=== PATIENT | female | born 1960 | race Caucasian/White ===

== ENCOUNTER → 2018-09-20 | Outpatient (CLI) | payer MEDICAID ==
[2018-09-20 16:24] LABS: T4, Free (Free Thyroxine) 1.8 ng/dL (0.80-1.80)
== END | disposition home or self-care (01) ==
LOC: LABWHC1 09:46
PROVIDERS: ATTEND Internal Medicine Endocrinology, Diabetes & Metabolism
DX: E03.9 Hypothyroidism, unspecified (principal); K76.89 Other specified diseases of liver
CPT/HCPCS: 36415; 84075; 84432; 84439; 84443

== ENCOUNTER → 2018-12-13 | Outpatient (CLI) | payer MEDICAID ==
--- NOTE | 2018-12-13 15:12 | MR ---
EXAMINATION TYPE: MR brain wo con DATE OF EXAM: 12/13/2018 COMPARISON: NONE HISTORY: Cervico-occipital neuralgia per order. Headache and jaw pain per patient with history of thy roid cancer 2009 TECHNIQUE: Multiplanar, multisequence imaging of the brain and brainstem is performed without IV cont rast. FINDINGS: Diffusion weighted images demonstrate no evidence of a recent infarct or other diffusion abnormality. There is no worrisome extra-axial fluid collection. The ventricular system and cisternal spaces are normal in size and appearance. The brain volume is age appropriate. There are few scattered small fo ci T2 hyperintensity seen throughout the white matter bilaterally. Approximately 10-20 small scattere d lesions are seen. Lesions are nonspecific in appearance and distribution are presumed on basis of p roduct of chronic small vessel ischemic change in patient of this age. Midline structures demonstrate normal morphology. The craniocervical junction appears within normal limits. Normal vascular flow voids are present. The visualized sinuses are clear and the globes are i ntact. IMPRESSION: Mild to borderline moderate nonspecific white matter changes may be on basis of product o f chronic small vessel ischemic change and/or altered vascular mechanics related to product of migrai ne headaches among the possible etiologies.
== END ==
LOC: RADMRIMAIN 06:27
PROVIDERS: ATTEND Family Medicine
DX: R90.89 Other abnormal findings on diagnostic imaging of central nervous system (principal)
CPT/HCPCS: 70551

== ENCOUNTER → 2019-03-26 | Outpatient (CLI) | payer MEDICAID ==
[2019-03-26 14:41] LABS: Basophils # (A) 0.1 k/uL (0-0.2); Basophils % (A) 1 %; Eosinophils # (A) 0.4 k/uL (0-0.7); Eosinophils % (A) 5 %; HCT 40.5 % (34.0-46.0); HGB 13.4 gm/dL (11.4-16.0); Lymphocytes # (A) 2.6 k/uL (1.0-4.8); Lymphocytes % (A) 33 %; MCH 27.8 pg (25.0-35.0); MCHC 33.2 g/dL (31.0-37.0); MCV 83.9 fL (80.0-100.0); Mean Platelet Volume 8.7; Monocytes # (A) 0.4 k/uL (0-1.0); Monocytes % (A) 6 %; Neutrophils # (A) 4.3 k/uL (1.3-7.7); Neutrophils % (A) 54 %; Platelet Count 254 k/uL (150-450); RBC 4.83 m/uL (3.80-5.40); RDW 12.8 % (11.5-15.5); WBC 7.9 k/uL (3.8-10.6)
[2019-03-26 14:42] LABS: Appearance,Urine Clear (Clear); Bilirubin,Urine Negative (Negative); Blood,Urine Negative (Negative); Color,Urine Light Yellow; Glucose,Urine (UA) Negative (Negative); Ketones,Urine Negative (Negative); Leukocyte Esterase,Urine Negative (Negative); Nitrite,Urine Negative (Negative); Protein,Urine Negative (Negative); Specific Gravity,Urine 1.007 (1.001-1.035); Urobilinogen,Urine <2.0 mg/dL (<2.0)
[2019-03-26 15:58] LABS: Erythrocyte Sedimentation Rate 13 mm/hr (0-20)
[2019-03-26 19:59] LABS: Vitamin D 25 Hydroxy 38.3 ng/mL (30.0-100.0)
[2019-03-26 20:17] LABS: African American GFR (CKD) 72.9 (60.0-200.0); Albumin 4.5 g/dL (3.80-4.90); Albumin/Globulin Ratio 2.65 (1.60-3.17); Anion Gap 9.4 mmol/L (4.00-12.00); Calcium 9.7 mg/dL (8.7-10.3); Carbon Dioxide 28.6 mmol/L (21.6-31.8); Globulin 1.7 g/dL (1.6-3.3); Potassium 4.2 mmol/L (3.5-5.5); Total Bilirubin 0.7 mg/dL (0.3-1.2); Total Protein 6.2 g/dL (6.2-8.2)
[2019-03-26 20:54] LABS: Hepatitis A Antibody IgM Non-Reactive (Non-Reactive); Hepatitis B Core IgM Non-Reactive (Non-Reactive); Hepatitis B Surface Antigen Non-Reactive (Non-Reactive); Hepatitis C IgG Antibody Non-Reactive (Non-Reactive)
== END | disposition home or self-care (01) ==
LOC: LABWHC1 14:05
PROVIDERS: ATTEND Family Medicine
DX: Z00.00 Encounter for general adult medical examination without abnormal findings (principal); Z11.59 Encounter for screening for other viral diseases
CPT/HCPCS: 36415; 80053; 80074; 81003; 82306; 82607; 84443; 85025; 85652

== ENCOUNTER → 2019-04-02 | Outpatient (CLI) | payer MEDICAID ==
--- NOTE | 2019-04-02 09:35 | CT ---
EXAMINATION TYPE: CT sinus wo con DATE OF EXAM: 04/02/2019 COMPARISON: None HISTORY: sinusitis CT DLP: 567 mGycm. Automated Exposure Control for Dose Reduction was Utilized. TECHNIQUE: CT scan of the sinuses is performed without contrast, axial images are obtained, coronal r eformatted images are also reviewed. FINDINGS: There is mild mucosal thickening fluid levels seen in the exterior margin the maxillary sin uses bilaterally greater on the right remaining paranasal sinuses development. Normal development and aeration. Mastoid air cells. The ostiomeatal complex is patent bilaterally on the coronal images. Visualized portion of mastoid air cells show no abnormal opacification. The globes are intact bilate rally. There is a Herminio cell on the right. Nasal septal deviation noted IMPRESSION: 1. Mild bilateral maxillary sinusitis. Fluid levels suggest possible acute component, correlate clini karla.
== END | disposition home or self-care (01) ==
LOC: RADCTMAIN 08:35
PROVIDERS: ATTEND Family Medicine
DX: J32.0 Chronic maxillary sinusitis (principal)
CPT/HCPCS: 70486

== ENCOUNTER → 2019-06-01 | Outpatient (CLI) | payer MEDICAID ==
--- NOTE | 2019-06-07 11:35 | MM ---
Reason for exam: screening (asymptomatic). Last mammogram was performed 2 years and 8 months ago. History: Patient is postmenopausal and has history of other cancer at age 54. Physical Findings: A clinical breast exam by your physician is recommended on an annual basis and results should be correlated with mammographic findings. MG 3D Screening Mammo W/Cad Bilateral CC and MLO view(s) were taken. Prior study comparison: October 12, 2016, mammogram, performed at [facility]. June 12, 2014, mammogram, performed at [facility]. There are scattered fibroglandular densities. There is a 6 x 3mm mass in the upper central slightly inner left breast at middle depth 5cm from nipple on 3D MLO 43/87 and CC 27/82. No suspicious abnormality on the right breast. ASSESSMENT: Incomplete: need additional imaging evaluation, BI-RAD 0 RECOMMENDATION: Special view mammogram of the left breast. If lesion persists on supplemental views, image directed ultrasound is recommended. [facility] will attempt to contact patient to return for supplemental views and ultrasound if indicated.
== END | disposition home or self-care (01) ==
LOC: RADMAMWWP 15:33
PROVIDERS: ATTEND Family Medicine
DX: Z12.31 Encounter for screening mammogram for malignant neoplasm of breast (principal)
CPT/HCPCS: 77063; 77067

== ENCOUNTER → 2019-06-18 | Outpatient (CLI) | payer MEDICAID ==
[2019-06-18 17:25] LABS: Chol/HDL Ratio 4.02; LDL Cholesterol,Calculated 116.8 mg/dL (0.0-131.0); VLDL Calculation 25.2 mg/dL (5.00-40.00)
== END | disposition home or self-care (01) ==
LOC: LABWHC1 10:46
PROVIDERS: ATTEND Family Medicine
DX: Z00.00 Encounter for general adult medical examination without abnormal findings (principal); Z11.59 Encounter for screening for other viral diseases
CPT/HCPCS: 36415; 80061

== ENCOUNTER → 2019-06-18 | Outpatient (CLI) | payer MEDICAID ==
--- NOTE | 2019-06-18 11:00 | MM ---
Reason for exam: additional evaluation requested from abnormal screening. Last mammogram was performed 1 month ago. History: Patient is postmenopausal and has history of other cancer at age 54. Took hormonal contraceptives beginning at age 23. Physical Findings: Nurse did not find any significant physical abnormalities on exam. MG 3D Work Up W/Cad LT Spot compression CC, spot compression MLO, and ML view(s) were taken of the left breast. Prior study comparison: June 01, 2019, bilateral MG 3d screening mammo w/cad. October 12, 2016, mammogram, performed at [facility]. The breast tissue is heterogeneously dense. This may lower the sensitivity of mammography. The previously seen abnormality resolves on additional views and appears as fibroglandular tissue compatible with summation. These results were verbally communicated with the patient and result sheet given to the patient on 06/18/19. ASSESSMENT: Negative, BI-RAD 1 RECOMMENDATION: Return to routine screening mammogram schedule for both breasts.
== END | disposition home or self-care (01) ==
LOC: RADMAMWWP 10:01
PROVIDERS: ATTEND Family Medicine
DX: R92.8 Other abnormal and inconclusive findings on diagnostic imaging of breast (principal)
CPT/HCPCS: 77061; 77065

== ENCOUNTER 2019-07-23 11:35 | Day surgery (SDC) | payer MEDICAID ==
[2019-07-19 12:12] VITALS: BMI 34.3
[~2019-07-23 11:35] MED LIST: LACTATED RINGERS 1,000 ML IV SCH; LIDOCAINE 1% 20 ML VIAL (10MG/ML) FOR IV START INTRADERMA PRN
[2019-07-23 11:58] VITALS: RESP 16; TEMP 97.5
[2019-07-23] MEDS ORDERED: PROPOFOL 10 MG/ML 20 ML VIAL IV ONE (13:47)
[2019-07-23] MEDS ORDERED: LIDOCAINE 1% INJ 10MG/ML (20 ML MDV) ONE (13:47)
--- NOTE | 2019-07-23 13:57 | P.GSHP ---
History of Present Illness H&P Date: 07/23/19 Chief Complaint: GERD 59-year-old female with history of reflux. Last endoscopy a little over one year ago. Patient was found to have a Schatzki's ring at that time. Lately has had some increased reflux. Remains on antiacids. Past Medical History Past Medical History: Cancer, GERD/Reflux, Thyroid Disorder Additional Past Medical History / Comment(s): hx of thyroid ca, radiation 2010 History of Any Multi-Drug Resistant Organisms: None Reported Past Surgical History: Joint Replacement Additional Past Surgical History / Comment(s): thyroidectomy, left hip replacement, rhinoplasty Past Anesthesia/Blood Transfusion Reactions: Postoperative Nausea & Vomiting (PONV) Smoking Status: Never smoker - Past Family History Father Family Medical History: Deep Vein Thrombosis (DVT) Daughter(s) Family Medical History: Cancer Additional Family Medical History / Comment(s): daughters x2 melanoma Medications and Allergies Home Medications Medication Instructions Recorded Confirmed Type Calcium 1,200 mg PO DAILY 07/19/19 History Levothyroxine Sodium [Synthroid] 112 mcg PO DAILY 07/19/19 07/19/19 History Multivitamin [Multivitamins Adult 1 each PO DAILY 07/19/19 07/19/19 History Gummies] Pantoprazole Sodium [Protonix] 40 mg PO DAILY 07/19/19 07/19/19 History Sucralfate [Carafate] 1 gm PO DIRECTED PRN 07/19/19 07/19/19 History Vitamin D3 10,000 unit PO DAILY 07/19/19 History Vitamin E 1,000 unit PO DAILY 07/19/19 07/19/19 History Allergies Allergy/AdvReac Type Severity Reaction Status Date / Time fentanyl Allergy Anaphylaxis Verified 07/23/19 12:00 [From Sublimaze (PF)] Sulfa (Sulfonamide Allergy Rash/Hives Verified 07/23/19 12:00 Antibiotics) Surgical - Exam Vital Signs Temp Pulse Resp BP Pulse Ox 97.5 F L 81 16 127/71 100 07/23/19 11:57 07/23/19 11:57 07/23/19 11:57 07/23/19 11:57 07/23/19 11:57 Physical exam: General: Well-developed, well-nourished HEENT: Normocephalic, sclerae nonicteric Abdomen: Nontender, nondistended Extremities: No edema Neuro: Alert and oriented Assessment and Plan (1) GERD (gastroesophageal reflux disease) Narrative/Plan: Will proceed with upper endoscopy Current Visit: Yes Status: Acute Code(s): K21.9 - GASTRO-ESOPHAGEAL REFLUX DISEASE WITHOUT ESOPHAGITIS SNOMED Code(s): 008177038
--- NOTE | 2019-07-23 14:16 | P.PCN ---
Date of Procedure: 07/23/19 Procedure(s) Performed: Preoperative Dx: GERD, dysphagia Postoperative Dx: Mild gastritis, small hiatal hernia, mild distal esophageal stricture with erosive distal esophagitis Procedure: EGD with Bx Anesthesia: Sedation Endoscopist: Dr. Payne Specimens: Antrum, esophagitis Endoscopic Procedure: The patient was on the endoscopy table in the left decubitus position. The Olympus gastroscope was inserted into the oropharynx and passed under direct visualization to the region of the third portion of the duodenum. From that point the scope was slowly withdrawn inspecting all surfaces carefully. There were no neoplastic inflammatory or polypoid lesions throughout the duodenum. The pylorus was widely patent. The stomach was carefully inspected. There was mild gastritis present. A biopsy of the antrum took place to rule out H. pylori. Retroflexion revealed a small sliding hiatal hernia. The GE junction was present 1.5 cm above the diaphragmatic hiatus. There was subtle narrowing at the GE junction itself consistent with a mild stricture. The patient had evidence of erosive distal esophagitis. This was non-circumferential. Linear erosions extended 1.5 cm proximally. Biopsies of the distal esophagitis took place. The remainder the esophagus was then carefully examined. There were no neoplastic inflammatory or polypoid lesions throughout the visualized esophagus. The patient was then taken to the recovery room in stable condition per anesthesia guidelines. Recommendations: Biopsy results. Continue antiacid therapy.
[2019-07-23 14:29] VITALS: BP 109/60; PULSE 86
== END 2019-07-23 15:10 | disposition home or self-care (01) ==
LOC: ORWHC2ENDO 11:35
PROVIDERS: ATTEND Surgery
DX: K21.0 Gastro-esophageal reflux disease with esophagitis (principal); K29.50 Unspecified chronic gastritis without bleeding; K31.7 Polyp of stomach and duodenum; K44.9 Diaphragmatic hernia without obstruction or gangrene; K22.2 Esophageal obstruction; K21.9 Gastro-esophageal reflux disease without esophagitis; E07.9 Disorder of thyroid, unspecified; E89.0 Postprocedural hypothyroidism; Z85.850 Personal history of malignant neoplasm of thyroid; Z92.3 Personal history of irradiation; Z96.642 Presence of left artificial hip joint; Z98.890 Other specified postprocedural states; Z82.49 Family history of ischemic heart disease and other diseases of the circulatory system; Z79.890 Hormone replacement therapy; Z79.899 Other long term (current) drug therapy; Z88.2 Allergy status to sulfonamides; Z88.5 Allergy status to narcotic agent
CPT/HCPCS: 88305; 43239; J2001; J2704

== ENCOUNTER → 2020-07-02 | Outpatient (CLI) | payer MEDICAID | END | disposition home or self-care (01) | LOC: LABWHC1 10:37 | PROVIDERS: ATTEND Internal Medicine Infectious Disease | DX: Z03.818 Encounter for observation for suspected exposure to other biological agents ruled out (principal); Z20.828 Contact with and (suspected) exposure to other viral communicable diseases | CPT/HCPCS: U0003; C9803 ==

== ENCOUNTER → 2020-09-15 | Outpatient (CLI) | payer MEDICAID ==
--- NOTE | 2020-09-15 12:43 | CT ---
EXAMINATION TYPE: CT sinus wo con DATE OF EXAM: 09/15/2020 COMPARISON: CT sinuses April 02, 2019 HISTORY: Pain behind right ear. Chronic sinusitis per order CT DLP: 688.9 mGycm. Automated Exposure Control for Dose Reduction was Utilized. TECHNIQUE: CT scan of the sinuses is performed without contrast, axial images are obtained, coronal r eformatted images are also reviewed. FINDINGS: Interval resolution of air-fluid level right maxillary sinus. Currently sinuses are clear without suspicious opacification or air-fluid levels The ostiomeatal complex is patent bilaterally on coronal image 22. Visualized portion of mastoid air cells show no abnormal opacification. The globes are intact bilate rally. Visualized portion of brain parenchyma unremarkable. IMPRESSION: The sinuses are clear and the ostiomeatal complex is patent bilaterally.
== END ==
LOC: RADCTMAIN 12:12
PROVIDERS: ATTEND Family Medicine
DX: J32.9 Chronic sinusitis, unspecified (principal)
CPT/HCPCS: 70486

== ENCOUNTER → 2021-03-13 | Outpatient (CLI) | payer MEDICAID ==
--- NOTE | 2021-03-16 10:27 | MM ---
Reason for exam: screening (asymptomatic). Last mammogram was performed 1 year and 9 months ago. History: Patient is postmenopausal and has history of other cancer at age 54. Took hormonal contraceptives beginning at age 23. Physical Findings: A clinical breast exam by your physician is recommended on an annual basis and results should be correlated with mammographic findings. MG 3D Screening Mammo W/Cad Bilateral CC and MLO view(s) were taken. Prior study comparison: June 18, 2019, left breast MG 3d work up w/cad LT. June 01, 2019, bilateral MG 3d screening mammo w/cad. The breast tissue is heterogeneously dense. This may lower the sensitivity of mammography. There is no discrete abnormality. No significant changes when compared with prior studies. ASSESSMENT: Negative, BI-RAD 1 RECOMMENDATION: Routine screening mammogram of both breasts in 1 year.
== END | disposition home or self-care (01) ==
LOC: RADMAMWWP 15:41
PROVIDERS: ATTEND Obstetrics & Gynecology
DX: Z12.31 Encounter for screening mammogram for malignant neoplasm of breast (principal); Z78.0 Asymptomatic menopausal state; Z85.9 Personal history of malignant neoplasm, unspecified; Z79.3 Long term (current) use of hormonal contraceptives
CPT/HCPCS: 77063; 77067

== ENCOUNTER 2021-05-24 10:23 | Emergency (ER) | payer MEDICAID ==
[2021-05-24 10:33] VITALS: TEMP 97.8
--- NOTE | 2021-05-24 12:45 | ED ---
ENT HPI - General Chief complaint: ENT Stated complaint: Inquicker/Hearing loss Time Seen by Provider: 05/24/21 12:16 Source: patient, RN notes reviewed Mode of arrival: ambulatory Limitations: no limitations - History of Present Illness Initial comments: Patient is a 61-year-old female presenting to the emergency Department with complaints of muffled hearing in her right ear that started 2 days ago. She states she is also hearing some buzzing sensations, she does have history of tinnitus. She denies any injuries or falls or traumatic events to her right ear. She denies any cough or cold-like symptoms, no fevers or chills. She denies any ear pain. She has no further complaints. Her vitals are stable upon arrival. - Related Data Home Medications Medication Instructions Recorded Confirmed Calcium 1,200 mg PO DAILY 07/19/19 05/22/21 Multivitamin [Multivitamins Adult 1 each PO DAILY 07/19/19 05/22/21 Gummies] Pantoprazole Sodium [Protonix] 40 mg PO DAILY PRN 07/19/19 05/22/21 Vitamin D3 2,000 unit PO DAILY 07/19/19 05/22/21 Levothyroxine Sodium [Synthroid] 150 mcg PO DAILY 05/22/21 05/22/21 Allergies Allergy/AdvReac Type Severity Reaction Status Date / Time fentanyl Allergy Anaphylaxis Verified 05/24/21 10:30 [From Sublimaze (PF)] Sulfa (Sulfonamide Allergy Rash/Hives Verified 05/24/21 10:30 Antibiotics) Review of Systems ROS Statement: Those systems with pertinent positive or pertinent negative responses have been documented in the HPI. ROS Other: All systems not noted in ROS Statement are negative. Past Medical History Past Medical History: Cancer, GERD/Reflux, Osteoarthritis (OA), Thyroid Disorder Additional Past Medical History / Comment(s): hx of thyroid ca-radioactive iodine 2010, arrhythmia "when to much caffiene", hiatal hernia, hx ulcer, gout, History of Any Multi-Drug Resistant Organisms: None Reported Past Surgical History: Joint Replacement Additional Past Surgical History / Comment(s): thyroidectomy, left hip replacement, rhinoplasty Past Anesthesia/Blood Transfusion Reactions: Previous Problems w/ Anesthesia, Motion Sickness Additional Past Anesthesia/Blood Transfusion Reaction / Comment(s): anaphylaxis with sublimaze Past Psychological History: No Psychological Hx Reported Smoking Status: Never smoker Past Alcohol Use History: None Reported Past Drug Use History: None Reported - Past Family History Father Family Medical History: Cancer, Deep Vein Thrombosis (DVT) Additional Family Medical History / Comment(s): melanoma Daughter(s) Family Medical History: Cancer Additional Family Medical History / Comment(s): daughters x2 melanoma General Exam - General Exam Comments Initial Comments: GENERAL: Patient is well-developed and well-nourished. Patient is nontoxic and in no acute distress. HEAD: Atraumatic, normocephalic. EYES: Pupils equal round and reactive to light, extraocular movements intact, sclera anicteric, conjunctiva are normal. Eyelids were unremarkable. ENT: TMs normal, nares patent, oropharynx clear without exudates. Moist mucous membranes. NECK: Normal range of motion, supple without lymphadenopathy or JVD. LUNGS: Unlabored respirations. Breath sounds clear to auscultation bilaterally and equal. No wheezes rales or rhonchi. HEART: Regular rate and rhythm without murmurs, rubs or gallops. NEUROLOGICAL: Patient is alert and oriented x 3. SKIN: Warm, Dry, normal turgor, no rashes or lesions noted. Limitations: no limitations Course Vital Signs 05/24/21 10:30 Temperature 97.8 F Medical Decision Making - Medical Decision Making Patient is a 61-year-old female here with decreased hearing of her right ear for the past 2 days. No traumatic injuries, no cough or cold like symptoms. Her exam is unremarkable, bilateral EACs and TMs are normal. I recommended Claritin or Zyrtec to see if there is fluid behind her ear, symptoms persist she can f ollow up with the ENT. I will give her referral. She is agreeable to this plan of care and she stable for discharge. Disposition Clinical Impression: Decreased hearing of right ear Disposition: HOME SELF-CARE Condition: Stable Instructions (If sedation given, give patient instructions): Hearing Loss (ED) Additional Instructions: Please return to the Emergency Department if symptoms worsen or any other concerns. Trial of Zyrtec or Claritin. Follow-up with ENT if symptoms persist. Is patient prescribed a controlled substance at d/c from ED?: No Referrals: Elfego Spaulding MD [Primary Care Provider] - 1-2 days Mono Ramirez MD [STAFF PHYSICIAN] - 1-2 days Time of Disposition: 12:44
== END 2021-05-24 13:16 | disposition home or self-care (01) ==
LOC: EC 10:23
DX: H91.91 Unspecified hearing loss, right ear (principal); M19.90 Unspecified osteoarthritis, unspecified site; K21.9 Gastro-esophageal reflux disease without esophagitis; Z79.899 Other long term (current) drug therapy
CPT/HCPCS: 99283

== ENCOUNTER 2021-05-26 07:34 | Day surgery (SDC) | payer MEDICAID ==
[2021-05-22 15:18] VITALS: BMI 35.0
[~2021-05-26 07:34] MED LIST changes: +LIDOCAINE 1% (10MG/ML) FOR IV START INTRADERMA PRN; -LIDOCAINE 1% 20 ML VIAL (10MG/ML) FOR IV START INTRADERMA PRN
[2021-05-26 08:05] VITALS: TEMP 97.4
[2021-05-26] MEDS ORDERED: LACTATED RINGERS 1,000 ML IV ONE (08:12)
[2021-05-26] MEDS ORDERED: PROPOFOL 10 MG/ML 20 ML VIAL IV ONE (08:46)
--- NOTE | 2021-05-26 09:05 | P.PCN ---
Date of Procedure: 05/26/21 Procedure(s) Performed: BRIEF HISTORY: Patient is a 61-year-old pleasant female scheduled for an elective colonoscopy as a part of screening for colorectal neoplasia PROCEDURE PERFORMED: Colonoscopy. PREOPERATIVE DIAGNOSIS: Screening for colon cancer. IV sedation per Anesthesia. PROCEDURE: After informed consent was obtained, the patient, was brought into the endoscopy unit. IV sedation was administered by Anesthesia under continuous monitoring. Digital rectal examination was normal. Initially the Olympus CF-160 flexible video colonoscope was then inserted in the rectum, gradually advanced into the cecum without any difficulty. Careful examination was performed as the scope was gradually being withdrawn. Ileocecal valve and the appendiceal orifice were visualized and appeared normal. Prep was excellent. Mucosa of the cecum, ascending colon, transverse colon, descending colon, sigmoid colon, and rectum appeared normal. Retroflexion was performed in the rectum and no lesions were seen. The patient tolerated the procedure well. IMPRESSION: Normal-appearing colon from rectum to cecum with no evidence of colorectal neoplasia. RECOMMENDATIONS: Findings of this examination were discussed with the patient as well as a family. She was advised to have a repeat screening colonoscopy in 10 years..
[2021-05-26 09:25] VITALS: BP 128/80; PULSE 65; RESP 16
== END 2021-05-26 10:02 | disposition home or self-care (01) ==
LOC: ORWHC2ENDO 07:34
PROVIDERS: ATTEND Internal Medicine Gastroenterology
DX: Z12.11 Encounter for screening for malignant neoplasm of colon (principal); E07.9 Disorder of thyroid, unspecified; M19.90 Unspecified osteoarthritis, unspecified site; Z79.890 Hormone replacement therapy; Z88.6 Allergy status to analgesic agent; Z88.2 Allergy status to sulfonamides
CPT/HCPCS: J2704; G0121

== ENCOUNTER → 2021-06-15 | Outpatient (CLI) | payer MEDICAID | END | disposition home or self-care (01) | LOC: LABMAIN 11:54 | PROVIDERS: ATTEND Emergency Medicine | DX: Z03.818 Encounter for observation for suspected exposure to other biological agents ruled out (principal); Z20.822 Contact with and (suspected) exposure to COVID-19 | CPT/HCPCS: 87635 ==

== ENCOUNTER → 2021-06-16 | Outpatient (CLI) | payer MEDICAID, OTHER | END | disposition home or self-care (01) | LOC: LABWHC1 13:56 | PROVIDERS: ATTEND Emergency Medicine | DX: Z20.822 Contact with and (suspected) exposure to COVID-19 (principal) | CPT/HCPCS: 87635 ==

== ENCOUNTER → 2021-12-30 | Outpatient (CLI) | payer MEDICAID ==
--- NOTE | 2021-12-30 20:14 | CT ---
EXAMINATION TYPE: CT abdomen pelvis w con DATE OF EXAM: 12/30/2021 COMPARISON: No previous CT scan is available for comparison HISTORY: RUQ pain CT DLP: 1190.60 mGycm Automated exposure control for dose reduction was used. TECHNIQUE: Helical acquisition of images was performed from the lung bases through the pelvis. CONTRAST: Performed with Oral Contrast and with IV Contrast, patient injected with 100 mL of Isovue 300. FINDINGS: LUNG BASES: No significant abnormality is appreciated. LIVER/GB: Questionable dependent density within the gallbladder which could represent sludge or tiny calculi. No evidence for acute cholecystitis. Unremarkable liver. PANCREAS: No significant abnormality is seen. SPLEEN: No significant abnormality is seen. ADRENALS: No significant abnormality is seen. KIDNEYS: Suspected tiny cyst in the right kidney, otherwise unremarkable kidneys. FREE AIR: No free air is visualized. RETROPERITONEAL ADENOPATHY: None visualized REPRODUCTIVE ORGANS: Grossly unremarkable. URINARY BLADDER: Obscured by artifacts from left hip prosthesis. PELVIC ADENOPATHY: No pathologically enlarged pelvic lymph nodes. OSSEOUS STRUCTURES: Left total hip arthroplasty. Degenerative changes of the right hip joint and sac roiliac joints as well as at L5-S1 level. BOWEL: No significant abnormality is seen. OTHER: Minimal arterial atherosclerotic calcifications. No sizable ascites. IMPRESSION: Questionable subtle sludge or tiny calculi within the gallbladder without evidence for acute cholecys titis. Further ultrasound assessment can be considered if clinically required. Otherwise no definite acute abnormality or suspicious lesion seen in the abdomen or the pelvis. Incid ental findings as described above.
== END | disposition home or self-care (01) ==
LOC: RADCTMAIN 17:22
PROVIDERS: ATTEND Family Medicine
DX: R10.11 Right upper quadrant pain (principal)
CPT/HCPCS: 74177; Q9967

== ENCOUNTER → 2022-05-18 | Outpatient (CLI) | payer MEDICAID ==
--- NOTE | 2022-05-18 13:30 | MM ---
Reason for Exam: Screening (asymptomatic). Last mammogram was performed 1 year(s) and 2 month(s) ago. Patient History: Menarche at age 15. First Full-Term at age 29. Postmenopausal. Other cancer, age 54. Hormonal Contraceptives, from age 23 until age 29. Risk Values: Meghann 5 year model risk: 1.6%. NCI Lifetime model risk: 8.1%. Prior Study Comparison: 06/01/2019 Bilateral Screening Mammogram, [facility]. 06/18/2019 Left Diagnostic Mammogram, [facility]. 03/13/2021 Bilateral Screening Mammogram, [facility]. Tissue Density: The breast tissue is heterogeneously dense. This may lower the sensitivity of mammography. Findings: Analyzed By CAD. There is 7 mm focal asymmetric density roughly 4 cm distance from nipple centrally in the left breast that appears more prominent from prior study and warrants further workup. Overall Assessment: Incomplete: need additional imaging evaluation, BI-RAD 0 Management: Special View Mammogram of the left breast. Diagnostic Breast Ultrasound of the left breast. Area of concern was worked up in 2019 but appears more prominent on current study. Electronically signed and approved by: Gold Glynn M.D.
== END | disposition home or self-care (01) ==
LOC: RADMAMWWP 07:08
PROVIDERS: ATTEND Obstetrics & Gynecology
DX: Z12.31 Encounter for screening mammogram for malignant neoplasm of breast (principal); Z78.0 Asymptomatic menopausal state
CPT/HCPCS: 77063; 77067

== ENCOUNTER → 2022-05-20 | Outpatient (CLI) | payer MEDICAID ==
--- NOTE | 2022-05-25 09:59 | MM ---
Reason for Exam: Additional evaluation requested from abnormal screening. Last screening mammogram was performed less than 1 month ago. Patient History: Menarche at age 15. First Full-Term at age 29. Postmenopausal. Hormonal Contraceptives, from age 23 until age 29. Risk Values: Meghann 5 year model risk: 1.6%. NCI Lifetime model risk: 8.1%. Prior Study Comparison: 06/18/2019 Left Diagnostic Mammogram, [facility]. 03/13/2021 Bilateral Screening Mammogram, [facility]. 05/18/2022 Bilateral MG 3D screening mammo w/cad, [facility]. Tissue Density: Left: There are scattered fibroglandular densities. Findings: Analyzed By CAD. 6 mm central nodularity left breast middle depth persists but becomes less defined, appearing more similar to patient's older priors after additional views. A benign etiology is suggested. Precautionary 6 month follow-up recommended. Overall Assessment: Probably benign, BI-RAD 3 Management: Diagnostic Mammogram of the left breast in 6 months. 1. Patient should continue monthly self breast exams. 2. A clinical breast exam by your physician is recommended on an annual basis. 3. This exam should not preclude additional follow-up of suspicious palpable abnormalities. Results were given to the patient verbally at the time of exam. Electronically signed and approved by: Sol Lopez M.D. Radiologist
== END | disposition home or self-care (01) ==
LOC: RADMAMWWP 09:34
PROVIDERS: ATTEND Obstetrics & Gynecology
DX: R92.8 Other abnormal and inconclusive findings on diagnostic imaging of breast (principal); Z78.0 Asymptomatic menopausal state
CPT/HCPCS: 77061; 77065

== ENCOUNTER → 2022-05-31 | Outpatient (CLI) | payer MEDICAID ==
--- NOTE | 2022-06-01 17:36 | US ---
EXAMINATION TYPE: US thyroid st tissue head/neck DATE OF EXAM: 05/31/2022 COMPARISON: NONE CLINICAL HISTORY: C73 MALIGNANT NEOPLASM OF THYROID GLAND. Hx of thyroid cancer. Thyroidectomy x 12 y rs ago GLAND SIZE: Right Lobe: Surgically absent Left Lobe: Surgically absent Isthmus Thickness: Surgically absent NODULES RIGHT: # of nodules measured on right: 0 LEFT: # of nodules measured on left: 0 ISTHMUS: # of nodules measured in the isthmus: 0 Bilateral neck scanned, no evidence of lymphadenopathy. IMPRESSION: 1. No recurrent masses within the thyroid bed.
== END | disposition home or self-care (01) ==
LOC: RADUSWWP 16:59
PROVIDERS: ATTEND Internal Medicine Endocrinology, Diabetes & Metabolism
DX: C73 Malignant neoplasm of thyroid gland (principal)
CPT/HCPCS: 76536

== ENCOUNTER → 2022-05-31 | Outpatient (CLI) | payer MEDICAID | END | disposition home or self-care (01) | LOC: LABWHC1 16:28 | PROVIDERS: ATTEND Internal Medicine Endocrinology, Diabetes & Metabolism | DX: C73 Malignant neoplasm of thyroid gland (principal) | CPT/HCPCS: 36415; 84443; 84445; 86800 ==

== ENCOUNTER → 2022-07-05 | Outpatient (CLI) | payer MEDICAID ==
[2022-07-06 10:33] LABS: Chol/HDL Ratio 5.02 Ratio; LDL Cholesterol,Calculated 159.4 mg/dL (0.0-131.0)
== END | disposition home or self-care (01) ==
LOC: LABWHC1 16:04
PROVIDERS: ATTEND Internal Medicine Endocrinology, Diabetes & Metabolism
DX: C73 Malignant neoplasm of thyroid gland (principal); E66.9 Obesity, unspecified; Z68.39 Body mass index [BMI] 39.0-39.9, adult
CPT/HCPCS: 36415; 80053; 80061; 83036; 84443

== ENCOUNTER → 2022-07-09 | Outpatient (CLI) | payer MEDICAID ==
[2022-07-09 17:55] LABS: African American GFR (CKD) 80.5 (60.0-200.0); Albumin 4.7 g/dL (3.8-4.9); Albumin/Globulin Ratio 2.61 (1.60-3.17); Anion Gap 9.7 mmol/L (10.00-18.00); BUN/Creat Ratio 13.67 Ratio (12.00-20.00); Blood Urea Nitrogen 12.3 mg/dL (9.0-27.0); Calcium 9.6 mg/dL (8.7-10.3); Carbon Dioxide 27.3 mmol/L (20.0-27.5); Globulin 1.8 g/dL (1.6-3.3); Non-African American GFR(CKD) 69.5 (60.0-200.0); Potassium 4.6 mmol/L (3.5-5.5); Total Bilirubin 0.6 mg/dL (0.30-1.20); Total Protein 6.5 g/dL (6.2-8.2)
== END | disposition home or self-care (01) ==
LOC: LABWHC1 11:25
PROVIDERS: ATTEND Internal Medicine Endocrinology, Diabetes & Metabolism
DX: C73 Malignant neoplasm of thyroid gland (principal); E66.9 Obesity, unspecified
CPT/HCPCS: 36415; 80053

== ENCOUNTER → 2022-12-08 | Outpatient (CLI) | payer MEDICAID | END | disposition home or self-care (01) | LOC: LABWHC1 08:26 | PROVIDERS: ATTEND Internal Medicine Endocrinology, Diabetes & Metabolism | DX: C73 Malignant neoplasm of thyroid gland (principal) | CPT/HCPCS: 36415; 84432; 84443; 86800 ==

== ENCOUNTER → 2023-05-13 | Outpatient (CLI) | payer MEDICAID ==
--- NOTE | 2023-05-13 09:22 | CT ---
EXAMINATION TYPE: CT sinus wo con DATE OF EXAM: 05/13/2023 COMPARISON: 09/15/2020 HISTORY: sinusitis CT DLP: 564.4 mGycm. Automated Exposure Control for Dose Reduction was Utilized. TECHNIQUE: CT scan of the sinuses is performed without contrast, axial images are obtained, coronal r eformatted images are also reviewed. FINDINGS: The paranasal sinuses including the frontal, ethmoid, sphenoid, and maxillary sinuses bila terally are well-aerated without abnormal opacification. The ostiomeatal complex is patent bilateral ly on the coronal images. Visualized portion of mastoid air cells show no abnormal opacification. The globes are intact bilate rally. IMPRESSION: The sinuses are clear and the ostiomeatal complex is patent bilaterally.
== END | disposition home or self-care (01) ==
LOC: RADCTMAIN 08:28
PROVIDERS: ATTEND Otolaryngology Otolaryngology/Facial Plastic Surgery
DX: J32.9 Chronic sinusitis, unspecified (principal)
CPT/HCPCS: 70486

== ENCOUNTER → 2023-05-18 | Outpatient (CLI) | payer MEDICAID ==
--- NOTE | 2023-05-18 09:34 | USB ---
Reason for Exam: Additional evaluation requested from abnormal screening. Patient History: Menarche at age 15. First Full-Term at age 29. Postmenopausal. Patient has history of breast feeding. Hormonal Contraceptives, from age 23 until age 29. Risk Values: Meghann 5 year model risk: 1.6%. NCI Lifetime model risk: 7.9%. Technique: Method: Targeted. Prior Study Comparison: 03/13/2021 Bilateral Screening Mammogram, [facility]. 05/18/2022 Bilateral MG 3D screening mammo w/cad, [facility]. 05/20/2022 Left MG 3D work up w/cad , [facility]. Findings: The lower inner quadrant of the left breast, the axilla of the left breast and the retroareolar of the left breast were scanned. There is a 0.5 x 0.3 x 0.4 cm hypoechoic area with posterior wall enhancement and good through transmission 9:00 position 5 cm the nipple. This correlates with the mammographic findings.. Overall Assessment: Benign, BI-RAD 2 Management: Screening Mammogram of both breasts in 1 year. A clinical breast exam by your physician is recommended on an annual basis and results should be correlated with mammographic findings. This exam should not preclude additional follow-up of suspicious palpable abnormalities. Results were given to the patient verbally at the time of exam. Electronically signed and approved by: Reid Chavez D.O. Radiologis
--- NOTE | 2023-05-18 09:35 | MM ---
Reason for Exam: Additional evaluation requested from prior study. Last screening mammogram was performed 12 month(s) ago. Patient History: Menarche at age 15. First Full-Term at age 29. Postmenopausal. Patient has history of breast feeding. Hormonal Contraceptives, from age 23 until age 29. Risk Values: Meghann 5 year model risk: 1.6%. NCI Lifetime model risk: 7.9%. Prior Study Comparison: 10/12/2016 Screening Mammogram, [facility]. 06/01/2019 Bilateral Screening Mammogram, [facility]. 06/18/2019 Left Diagnostic Mammogram, [facility]. 03/13/2021 Bilateral Screening Mammogram, [facility]. 05/18/2022 Bilateral MG 3D screening mammo w/cad, [facility]. 05/20/2022 Left MG 3D work up w/cad , [facility]. Tissue Density: There are scattered fibroglandular densities. Findings: Analyzed By CAD. Pattern appears overall stable. There is a lobular density within the mid left medial breast best visualized on craniocaudal projection. Ultrasound is recommended for additional evaluation. No suspicious groups of microcalcifications, spiculated or lobular masses, architectural distortion or other secondary signs of malignancy are mammographically apparent. Overall Assessment: Incomplete: need additional imaging evaluation, BI-RAD 0 Management: Diagnostic Breast Ultrasound of the left breast. A negative mammogram report should not preclude additional follow up of suspicious palpable abnormalities. Patient should continue monthly self breast exam. A clinical breast exam by your physician is recommended on an annual basis and results should be correlated with mammographic findings. Electronically signed and approved by: Reid Chavez D.O. Radiologis
== END | disposition home or self-care (01) ==
LOC: RADMAMWWP 08:20
PROVIDERS: ATTEND Family Medicine
DX: R92.323 Mammographic fibroglandular density, bilateral breasts (principal); Z78.0 Asymptomatic menopausal state
CPT/HCPCS: 77062; 77066

== ENCOUNTER → 2023-10-05 | Outpatient (CLI) | payer MEDICAID ==
--- NOTE | 2023-10-06 07:47 | US ---
EXAMINATION TYPE: US thyroid st tissue head/neck DATE OF EXAM: 10/05/2023 COMPARISON: 2021 CLINICAL INDICATION: Female, 63 years old with history of C73 MALIGNANT NEOPLASM OF THYROID GLAND; S/ p thyroidectomy No evidence of residual tissue. IMPRESSION: Thyroidectomy change without residual tissue, nodule or mass. No definite adenopathy within the field -of-view. 2017 ACR TI-RADS LEVEL: *Highest TI-RADS level nodule reported
== END | disposition home or self-care (01) ==
LOC: RADUSWWP 16:08
PROVIDERS: ATTEND Internal Medicine Endocrinology, Diabetes & Metabolism
DX: C73 Malignant neoplasm of thyroid gland (principal); E89.0 Postprocedural hypothyroidism
CPT/HCPCS: 76536

== ENCOUNTER → 2023-10-07 | Outpatient (CLI) | payer MEDICAID ==
[2023-10-07 15:45] LABS: Basophils % (A) 1.7 %; Eosinophils # (A) 0.15 X 10*3/uL (0.04-0.35); Eosinophils % (A) 2.5 %; HCT 40.8 % (37.2-46.3); HGB 13.2 g/dL (12.0-15.0); Lymphocytes # (A) 2.03 X 10*3/uL (0.90-5.00); Lymphocytes % (A) 33.8 %; MCH 27.6 pg (27.0-32.0); MCHC 32.4 g/dL (32.0-37.0); MCV 85.4 FL (80.0-97.0); Mean Platelet Volume 12.3 FL (9.5-12.2); Monocytes # (A) 0.55 X 10*3/uL (0.20-1.00); Monocytes % (A) 9.2 %; NRBC Per 100 WBC 0 X 10*3/uL (0.00-0.01); Neutrophils # (A) 3.17 X 10*3/uL (1.80-7.70); Neutrophils % (A) 52.6 %; Platelet Count 228 X 10*3/uL (140-440); RBC 4.78 X 10*6/uL (4.10-5.20); RDW 12.2 % (11.5-14.5); WBC 6.01 X 10*3/uL (4.50-10.00)
[2023-10-07 16:07] LABS: ALT 27 U/L (8-44); AST 21 U/L (13-35); Albumin 4.3 g/dL (3.8-4.9); Albumin/Globulin Ratio 2.26 Ratio (1.60-3.17); Alkaline Phosphatase 145 U/L (41-126); Blood Urea Nitrogen 9.5 mg/dL (9.0-27.0); Calcium 9.8 mg/dL (8.7-10.3); Carbon Dioxide 27.2 mmol/L (21.6-31.8); Chloride 104 mmol/L (96-109); Chol/HDL Ratio 4.59 Ratio; Globulin 1.9 g/dL (1.6-3.3); Glucose 103 mg/dL (70-110); LDL Cholesterol,Calculated 139.8 mg/dL (0.0-131.0); Potassium 4.2 mmol/L (3.5-5.5); Sodium 142 mmol/L (135-145); Total Bilirubin 0.8 mg/dL (0.3-1.2); Total Protein 6.2 g/dL (6.2-8.2)
[2023-10-07 16:28] LABS: T4, Free (Free Thyroxine) 1.63 ng/dL (0.80-1.80)
== END | disposition home or self-care (01) ==
LOC: LABWHC1 08:15
PROVIDERS: ATTEND Family Medicine
DX: Z13.1 Encounter for screening for diabetes mellitus (principal); Z13.220 Encounter for screening for lipoid disorders; E03.9 Hypothyroidism, unspecified; R06.09 Other forms of dyspnea
CPT/HCPCS: 36415; 80053; 80061; 83036; 84439; 84443; 84481; 85025

== ENCOUNTER → 2023-10-13 | Outpatient (CLI) | payer MEDICAID ==
--- NOTE | 2023-10-13 11:08 | BD ---
EXAMINATION TYPE: Axial Bone Density DATE OF EXAM: 10/13/2023 CLINICAL HISTORY: 63 years old Female. ICD-10 CODE: Z78.0 ASYMPTOMATIC MENOPAUSAL STATE Height: 62.5 Weight: 201.8 FRAX RISK QUESTIONS: Alcohol (3 or more units per day): no Family History (Parent hip fracture): no Glucocorticoids (More than 3mos): no (Ex: prednisone, prednisolone, methylprednisolone, dexamethasone, and hydrocortisone). History of Fracture in Adulthood: no Secondary Osteoporosis: 1. Type 1 Diabetes: no 2. Hyperthyroidism: no 3. Menopause before 45: yes 4. Malnutrition: yes 5. Chronic liver disease: no Rheumatoid Arthritis: no Current Tobacco Use: no RISK FACTORS HISTORY OF: Surgery to Spine/Hip(right/left)/Wrist (right/left): left hip replaced 2014 MEDICATIONS: Thyroid Medications: synthroid How Lon years EXAM MEASUREMENTS: Bone mineral densitometry was performed using the Trulia System. Bone mineral density as measured about the Lumbar spine is: ----- L1-L4(G/cm2): 0.839 T Score Values are as follows: ----- L1: -2.7 ----- L2: -3.8 ----- L3: -2.3 ----- L4: -2.6 ----- L1-L4: -2.8 Z Score Values are as follows: ----- L1: -2.3 ----- L2: -3.4 ----- L3: -1.9 ----- L4: -2.2 ----- L1-L4: -2.4 Bone mineral density : baseline Bone mineral density about the R hip (g/cm2): 0.760 T Score values are as follows: -----R Neck: -1.3 -----R Total: -.20 Z Score values are as follows: -----R Neck: -0.6 -----R Total: -1.6 Bone mineral density : baseline FRAX%s: The graph provided illustrates a 7.2% chance for a major osteoporotic fx and a 0.5% chance fo r the hips probability for fx in 10 years time. IMPRESSION: Osteoporosis (T Score less than -2.5). There is increased fracture risk and therapy is usually indicated based on age. Re-Screen 1-2 years. NOTE: T-SCORE=SD OF THE YOUNG ADULT MEAN.
== END | disposition home or self-care (01) ==
LOC: RADBDWWP 07:05
PROVIDERS: ATTEND Obstetrics & Gynecology
DX: M85.89 Other specified disorders of bone density and structure, multiple sites (principal); M81.0 Age-related osteoporosis without current pathological fracture; Z78.0 Asymptomatic menopausal state
CPT/HCPCS: 77080

== ENCOUNTER → 2024-02-06 | Outpatient (CLI) | payer MEDICAID ==
--- NOTE | 2024-02-28 12:28 | US ---
EXAMINATION TYPE: US carotid duplex BILAT DATE OF EXAM: 02/28/2024 COMPARISON: NONE CLINICAL INDICATION: Female, 63 years old with history of R20.2; TECHNIQUE: Carotid duplex ultrasound examination. Indirect Doppler criteria was utilized. FINDINGS: EXAM MEASUREMENTS: RIGHT: Peak Systolic Velocity (PSV) cm/sec ----- Right CCA: 59.2 ----- Right ICA: 73.5 ----- Right ECA: 86.4 ICA/CCA ratio: 1.3 RIGHT: End Diastole cm/sec ----- Right CCA: 23.0 ----- Right ICA: 32.9 ----- Right ECA: 16.0 LEFT: Peak Systolic Velocity (PSV) cm/sec ----- Left CCA: 71.1 ----- Left ICA: 71.2 ----- Left ECA: 90.8 ICA/CCA ratio: 1.1 LEFT: End Diastole cm/sec ----- Left CCA: 29.2 ----- Left ICA: 28.4 ----- Left ECA: 19.3 VERTEBRALS (direction of flow): Right Vertebral: Antegrade Left Vertebral: Antegrade Rhythm: Normal IMPRESSION: Less than 50% stenosis of bilateral carotid bifurcations. Criteria for Assigning % of Stenosis / Diameter reduction (Estimation based on the indirect measurements of the internal carotid artery velocities (ICA PSV). 1. Normal (no stenosis)=ICA PSV < 125 cm/s: ratio < 2.0: ICA EDV<40 cm/s. 2. Less than 50% stenosis=ICA PSV < 125 cm/s: ratio < 2.0: ICA EDV<40 cm/s. 3. 50 to 69% stenosis=ICA PSV of 125 to 230 cm/s: ration 2.0 ? 4.0: ICA EDV 40-100 cm/s. 4. Greater than 70% stenosis to near occlusion= ICA PSV > 230 cm/s: ratio > 4.0: ICA EDV > 100 cm/s. 5. Near occlusion= ICA PSV velocities may be low or undetectable: variable ratio and ICA EDV. 6. Total occlusion=unable to detect flow.
== END | disposition home or self-care (01) ==
LOC: RADUSWWP 14:53
PROVIDERS: ATTEND Internal Medicine Interventional Cardiology
DX: R06.02 Shortness of breath (principal); R42 Dizziness and giddiness
CPT/HCPCS: 93880

== ENCOUNTER → 2024-02-10 | Outpatient (CLI) | payer OTHER ==
--- NOTE | 2024-03-13 21:38 | XR ---
Marlen Frye : 1960 EXAMINATION TYPE: XR lumbar spine 3V DATE OF EXAM: 02/10/2024 Comparison: None available during downtime Clinical History: 63-year-old female S39.012A Findings: There is diffuse osteopenia. No compression deformity is identified. Moderate degenerative disc disea se with narrowed disc, endplate spondylosis, and vacuum phenomenon at L5-S1. There is facet arthropat hy throughout but no malalignment. Cholecystectomy clips. Impression: 1. Osteopenia without vertebral compression collapse or malalignment. 2. Facet arthropathy throughout and moderate degenerative disc disease at L5-S1.
== END | disposition home or self-care (01) ==
LOC: RADXRMAIN 14:20
PROVIDERS: ATTEND Emergency Medicine
DX: S39.012A Strain of muscle, fascia and tendon of lower back, initial encounter
CPT/HCPCS: 72100

== ENCOUNTER → 2024-02-10 | Outpatient (CLI) | payer MEDICAID | END | disposition home or self-care (01) | LOC: RADECHMAIN 10:20 | PROVIDERS: ATTEND Internal Medicine Interventional Cardiology | DX: R06.02 Shortness of breath (principal); R42 Dizziness and giddiness | CPT/HCPCS: 93306 ==

== ENCOUNTER → 2024-07-27 | Outpatient (CLI) | payer MEDICAID ==
--- NOTE | 2024-07-27 11:23 | US ---
EXAMINATION TYPE: US thyroid st tissue head/neck DATE OF EXAM: 07/27/2024 COMPARISON: US CLINICAL INDICATION: Female, 64 years old with history of R599 LYMPHADENOPATHY; Pt states large palpa ble lump right lateral neck, "for years" TECHNIQUE: Right lateral neck FINDINGS: Right lateral neck scanned in area of palpable there is a small lymph node visualized= 0.5 x 1.1 cm w ith a 4mm thick cortex, otherwise no other abnormality visualized to account for pt's palpable. IMPRESSION: 1. Small lymph node within the right neck. [facility], , 07/27/2024 11:21 AM
--- NOTE | 2024-07-27 11:30 | FL ---
EXAMINATION TYPE: FL barium swallow DATE OF EXAM: 07/27/2024 10:42 AM COMPARISON: None. CLINICAL INDICATION: Female, 64 years old with history of R599 GASTRO-ESOPHAGEAL REFLUX DISEASE, maximo ent with sensation of certain foods getting stuck such as meat in the mid chest Total fluoroscopy time: 1 minute 54 seconds. Total images: 50. Total dose: 325 mGycm2. FINDINGS: The swallowing mechanism is normal. There is kehh-gf-pdummhap hypertrophy of the cricopharyngeus musc le. Otherwise, hypopharyngeal anatomy is preserved. The thoracic portion has a normal course and caliber and normal motility. The mucosa is normal and no persistent filling defect is encountered. There is a small hiatal hernia noted with only mild gastroesophageal reflux seen during the course of the exam. Relative narrowing at the GE junction noted. No irregularity is seen here. IMPRESSION: 1. Small hiatal hernia with mild gastroesophageal reflux seen during the course of the exam. This may underestimate the amount of reflux. Clinically correlate. 2. Relative focal narrowing at the GE junction could represent a mild stricture or Schatzki's ring. C orrelate as to the need for direct visualization. 3. Mild to moderate CP muscle hypertrophy which may be secondary to chronic reflux. [facility], , 07/27/2024 11:28 AM
== END | disposition home or self-care (01) ==
LOC: RADFLMAIN 09:16
PROVIDERS: ATTEND Otolaryngology Otolaryngology/Facial Plastic Surgery
DX: K21.9 Gastro-esophageal reflux disease without esophagitis (principal); R59.9 Enlarged lymph nodes, unspecified; K44.9 Diaphragmatic hernia without obstruction or gangrene
CPT/HCPCS: 74220; 76536

== ENCOUNTER 2024-10-26 12:45 | Day surgery (SDC) | payer MEDICAID ==
[2024-10-24 17:56] VITALS: BMI 36.0
[2024-10-26 13:22] VITALS: RESP 16; TEMP 97.3
[2024-10-26] MEDS: LACTATED RINGERS 1,000 ML IV SCH (13:41)
[2024-10-26] MEDS: LACTATED RINGERS 1,000 ML IV ONE (13:41)
[2024-10-26] MEDS ORDERED: PROPOFOL 10 MG/ML 20 ML VIAL IV ONE (14:05)
--- NOTE | 2024-10-26 14:13 | P.PCN ---
Date of Procedure: 10/26/24 Procedure(s) Performed: BRIEF HISTORY: Patient is a 64-year-old, pleasant, white female scheduled for an upper endoscopy as a part evaluation of intermittent dysphagia to solids and longstanding history of GERD. PROCEDURE PERFORMED: Esophagogastroduodenoscopy with balloon dilation. PREOPERATIVE DIAGNOSIS: Longstanding history of GERD and intermittent dysphagia to solid. IV sedation per anesthesia. PROCEDURE: After informed consent was obtained, the patient was brought into the endoscopy unit. IV sedation was administered by Anesthesia under continuous monitoring. Initially the Olympus GIF-140 video endoscope was inserted into the mouth. Esophagus intubated without any difficulty. It was gradually advanced into the stomach and duodenum and carefully examined. The bulb and the second part of the duodenum appeared normal. The scope at this time was withdrawn to the stomach, adequately insufflated with air, and upon careful examination, mucosa of the antrum, body, cardia and the fundus appeared normal. The scope was then withdrawn into the esophagus. The GE junction was located at 39 cm from the incisors. Small hiatal hernia noted. There was a distal esophageal Schatzki's ring identified that was dilated with 15 to 18 mm balloon for 60 seconds. There was some mucosal oozing identified at the site of dilation. The rest of the esophagus appeared normal. There were no erosions or ulcerations seen and the patient tolerated the procedure well. IMPRESSION: 1. Distal esophageal Schatzki's ring status post balloon dilation using 15 to 18 mm TTS balloon. 2. Small hiatal hernia. RECOMMENDATIONS: The findings of this examination were discussed with the patient as well as her family. She was advised to be on clear liquids for 2 hours. Continue with current medications and follow antireflux measures..
[2024-10-26 14:40] VITALS: BP 114/75; PULSE 61
== END 2024-10-26 15:22 | disposition home or self-care (01) ==
LOC: ORWHC2ENDO 12:45
PROVIDERS: ATTEND Internal Medicine Gastroenterology
DX: K22.2 Esophageal obstruction (principal); K44.9 Diaphragmatic hernia without obstruction or gangrene
CPT/HCPCS: 43249; J2704; C1726

== ENCOUNTER → 2024-11-01 | Outpatient (CLI) | payer MEDICAID ==
--- NOTE | 2024-11-01 08:31 | MM ---
Reason for Exam: Screening (asymptomatic). Last mammogram was performed 1 year(s) and 6 month(s) ago. Patient History: Menarche at age 15. First Full-Term at age 29. Postmenopausal. Patient has history of breast feeding. Hormonal Contraceptives, from age 23 until age 29. Risk Values: Meghann 5 year model risk: 1.7%. NCI Lifetime model risk: 7.7%. Prior Study Comparison: 06/01/2019 Bilateral Screening Mammogram, [facility]. 06/18/2019 Left Diagnostic Mammogram, [facility]. 03/13/2021 Bilateral Screening Mammogram, [facility]. 05/18/2022 Bilateral MG 3D screening mammo w/cad, [facility]. 05/20/2022 Left MG 3D work up w/cad LT, [facility]. 05/18/2023 Bilateral MG 3D diag mammo w/cad [facility], [facility]. Tissue Density: The breasts are heterogeneously dense, which may obscure small masses. Findings: Analyzed By CAD. More prominent 8 mm lobulated mass in the left breast 3-4 cm distance from nipple centrally . Overall Assessment: Incomplete: need additional imaging evaluation, BI-RAD 0 Management: Diagnostic Breast Ultrasound of the left breast. Targeted ultrasound left breast. Patient should continue monthly self-breast exams. A clinical breast exam by your physician is recommended on an annual basis. This exam should not preclude additional follow-up of suspicious palpable abnormalities. Note on Meghann scores and lifetime risk: 1. A Meghann score greater than 3% is considered moderate risk. If this is the case, consider specialist referral to assess eligibility for a risk reducing agent. 2. If overall lifetime risk for the development of breast cancer is 20% or higher, the patient may qualify for future screening with alternating mammogram and breast MRI. [facility], , 11/01/2024 8:28 AM. Electronically signed and approved by: Gold Glynn M.D.
== END | disposition home or self-care (01) ==
LOC: RADMAMWWP 07:41
PROVIDERS: ATTEND Family Medicine
DX: Z12.31 Encounter for screening mammogram for malignant neoplasm of breast (principal); R92.333 Mammographic heterogeneous density, bilateral breasts; Z78.0 Asymptomatic menopausal state; Z92.0 Personal history of contraception
CPT/HCPCS: 77063; 77067

== ENCOUNTER → 2024-11-08 | Outpatient (CLI) | payer MEDICAID ==
--- NOTE | 2024-11-08 07:43 | USB ---
Reason for Exam: Additional evaluation requested from abnormal screening. Patient History: Menarche at age 15. First Full-Term at age 29. Postmenopausal. Patient has history of breast feeding. Hormonal Contraceptives, from age 23 until age 29. Risk Values: Meghann 5 year model risk: 1.7%. NCI Lifetime model risk: 7.7%. Technique: Method: Targeted. Prior Study Comparison: 05/20/2022 Left MG 3D work up w/cad LT, [facility]. 05/18/2023 Bilateral MG 3D diag mammo w/cad [facility], [facility]. 11/01/2024 Bilateral MG 3D screening mammo w/cad, [facility]. Findings: The lower section of the breast of the left breast, the axilla of the left breast and the retroareolar of the left breast were scanned. Technique utilized: US breast limited LT Image; Ultrasound imaging of: All 4 quadrants, the retroareolar region and axilla. No evidence for organizing fluid collection or mass. * Left breast 6:00 3 cm the nipple probable anechoic cyst with adjacent smaller cysts in totality measuring up to 9 mm. Findings compatible with benign cluster of cysts. * Left breast 6:00 3 cm nipple benign stable cyst measuring up to 4 x 4 mm. Overall Assessment: Benign, BI-RAD 2 Management: Screening Mammogram of both breasts in 1 year. A clinical breast exam by your physician is recommended on an annual basis and results should be correlated with mammographic findings. This exam should not preclude additional follow-up of suspicious palpable abnormalities. Results were given to the patient verbally at the time of exam. [facility], , 11/08/2024 7:38 AM. Electronically signed and approved by: Hunter Donato DO
[2024-11-08 10:35] LABS: Basophils # (A) 0.07 X 10*3/uL (0.00-0.10); Eosinophils # (A) 0.24 X 10*3/uL (0.04-0.35); Eosinophils % (A) 3.6 %; HCT 37.6 % (37.2-46.3); HGB 12.3 g/dL (12.0-15.0); Lymphocytes # (A) 2.19 X 10*3/uL (0.90-5.00); Lymphocytes % (A) 32.6 %; MCHC 32.7 g/dL (32.0-37.0); MCV 85.5 FL (80.0-97.0); Mean Platelet Volume 12.5 FL (9.5-12.2); Monocytes # (A) 0.65 X 10*3/uL (0.20-1.00); Monocytes % (A) 9.7 %; NRBC Per 100 WBC 0 X 10*3/uL (0.00-0.01); Neutrophils # (A) 3.55 X 10*3/uL (1.80-7.70); Neutrophils % (A) 52.8 %; Platelet Count 231 X 10*3/uL (140-440); RDW 12.1 % (11.5-14.5); WBC 6.72 X 10*3/uL (4.50-10.00)
[2024-11-08 10:42] LABS: ALT 41 U/L (8-44); AST 27 U/L (13-35); Albumin 4.2 g/dL (3.8-4.9); Albumin/Globulin Ratio 2.33 Ratio (1.60-3.17); Alkaline Phosphatase 119 U/L (41-126); BUN/Creat Ratio 12.38 Ratio (12.00-20.00); Blood Urea Nitrogen 9.9 mg/dL (9.0-27.0); Calcium 8.8 mg/dL (8.7-10.3); Carbon Dioxide 24.6 mmol/L (21.6-31.8); Chloride 107 mmol/L (96-109); Chol/HDL Ratio 4.25 Ratio; Globulin 1.8 g/dL (1.6-3.3); Glucose 100 mg/dL (70-110); LDL Cholesterol,Calculated 125.4 mg/dL (0.0-131.0); Sodium 142 mmol/L (135-145); Total Bilirubin 0.7 mg/dL (0.3-1.2)
== END | disposition home or self-care (01) ==
LOC: RADUSWWP 07:00
PROVIDERS: ATTEND Family Medicine
DX: N60.02 Solitary cyst of left breast (principal); N63.20 Unspecified lump in the left breast, unspecified quadrant; Z78.0 Asymptomatic menopausal state
CPT/HCPCS: 80053; 80061; 83036; 85025

== ENCOUNTER → 2025-01-14 | Outpatient (CLI) | payer MEDICAID ==
--- NOTE | 2025-01-14 14:29 | MR ---
EXAMINATION TYPE: MR lumbar spine wo con DATE OF EXAM: 01/14/2025 2:17 PM COMPARISON: None. CLINICAL INDICATION: Female, 64 years old with history of M54.16 RADICULOPATHY, LUMBAR REGION; PHH, L ow back pain, rt leg weakness TECHNIQUE: Multi planar, multi sequence imaging was performed utilizing: T1-weighted, T2-weighted, a nd turbo inversion recovery imaging of the lumbar spine. IV Contrast: mL (None, if empty) FINDINGS: Alignment: The lumbar vertebral bodies have preserved heights and alignment. Cord: The conus medullaris and the distal spinal cord appear unremarkable with regards to their signa l intensity and morphology. Bones/Discs: Mild degeneration changes throughout the spine with osteophyte formation and facet joint arthropathy. Severe disc space narrowing at L5-S1 Intervertebral disc signal is maintained. Reactive adjoining endplate edema at superior anterior endplate of T11. T12-L1: No evidence of significant spinal canal stenosis or neural foraminal stenosis. L1-L2: No evidence of significant spinal canal stenosis or neural foraminal stenosis. L2-L3: No evidence of significant spinal canal stenosis or neural foraminal stenosis. L3-L4: No evidence of significant spinal canal stenosis or neural foraminal stenosis. L4-L5: No evidence of significant spinal canal stenosis. Facet joint arthropathy moderate bilateral n eural foraminal stenosis. L5-S1: The disc has a rounded posterior morphology without significant spinal canal stenosis. Facet j oint arthropathy with moderate to severe bilateral neural foraminal stenosis. No significant spinal canal or neural foraminal stenosis in the remainder of the visualized levels. Other findings: None. IMPRESSION: 1. No definitive evidence of disc herniation or significant spinal canal stenosis. 2. Multilevel disc degeneration with associated osteoarthritic changes worse at L5-S1 with severe di sc space narrowing and moderate to severe bilateral neural foraminal stenosis.. [facility], , 01/14/2025 2:27 PM
== END | disposition home or self-care (01) ==
LOC: RADMRIMAIN 11:28
PROVIDERS: ATTEND Family Medicine
DX: M48.061 Spinal stenosis, lumbar region without neurogenic claudication (principal); M51.16 Intervertebral disc disorders with radiculopathy, lumbar region
CPT/HCPCS: 72148